=== PATIENT | female | born 1975 | race American Indian/Alaskan Native ===

== ENCOUNTER 2023-07-19 02:22 | Emergency (ER) | payer OTHER ==
[2023-07-19] MEDS ORDERED: Sodium Chloride 0.9% 10 ML Syringe FLUSH PRN (02:27)
[2023-07-19 02:37] LABS: BASOPHILS PERCENT AUTO 0.1 % (0.0-1.0); EOSINOPHILS PERCENT AUTO 0.8 % (1.0-3.0); HEMATOCRIT 38.7 % (37.0-47.0); HEMOGLOBIN 12.5 g/dL (12.0-16.0); LYMPHOCYTES PERCENT AUTO 18.1 % (20.5-50.1); MEAN CORPUSCULAR HEMOGLOBIN 27.8 pg (27.0-34.0); MEAN CORPUSCULAR HGB CONC 32.3 g/dL (33.0-35.0); MONOCYTES PERCENT AUTO 9.2 % (2-8); NEUTROPHILS PERCENT AUTO 71.8 % (42.2-75.2); PLATELET COUNT,PLT 296 10^3/uL (150-450); WHITE BLOOD CELL COUNT,WBC 11.6 10^3/uL (5.0-10.0)
[2023-07-19 02:54] LABS: APPEARANCE,URINE CLEAR (CLEAR); BILIRUBIN,URINE NEGATIVE (NEGATIVE); COLOR,URINE YELLOW (YELLOW); GLUCOSE,URINE NEGATIVE (NEGATIVE); KETONES,URINE NEGATIVE (NEGATIVE); LEUKOCYTE ESTERASE,URINE NEGATIVE (NEGATIVE); NITRITE,URINE NEGATIVE (NEGATIVE); OCCULT BLOOD,URINE LARGE (NEGATIVE); PH,URINE 5.5 (5.0-9.0); PROTEIN,URINE NEGATIVE (NEGATIVE); UROBILINOGEN,URINE 0.2 mg/dL (0.2-1.0)
[2023-07-19 02:56] LABS: A/G RATIO 0.67; ALBUMIN 2.9 g/dL (3.4-5.0); ANION GAP 8.5 mEq/L (7-13); BILIRUBIN TOTAL 0.4 mg/dL (0.2-1.0); BUN/CREATININE RATIO 13.1 (No establ ref range); CALCIUM 8.4 mg/dL (8.5-10.1); CREATININE 0.84 mg/dL (0.55-1.02); EST CRCL DRUG DOSING (CG) 79.65 mL/min; POTASSIUM,K 3.5 mmol/L (3.5-5.1); PROTEIN TOTAL,TP 7.2 g/dL (6.4-8.2)
[2023-07-19 02:57] LABS: AMPHETAMINES,URINE POSITIVE (NEGATIVE); BARBITURATES,URINE NEGATIVE (NEGATIVE); BENZODIAZEPINE,URINE NEGATIVE (NEGATIVE); MDMA (ECSTASY), URINE POSITIVE (NEGATIVE); METHADONE,URINE NEGATIVE (NEGATIVE); METHAMPHETAMINES,URINE POSITIVE (NEGATIVE); OPIATES,URINE NEGATIVE (NEGATIVE); OXYCODONE,URINE NEGATIVE (NEGATIVE); PHENCYCLIDINE,URINE NEGATIVE (NEGATIVE); TCA,URINE NEGATIVE (NEGATIVE)
[2023-07-19] MEDS ORDERED: cefTRIAXone 1 GM Vial IVPUSH ONE (03:02)
[2023-07-19 03:05] LABS: RBC,URINE 40-50 /HPF (0-5); WBC,URINE 0-5 /HPF (0-5/HPF)
[2023-07-19 03:06] LABS: BACTERIA,URINE FEW /HPF (0-FEW/HPF); EPITHELIAL CELLS,URINE MODERATE /HPF (NOT SEEN); HYALINE CASTS,URINE RARE; MUCUS,URINE MANY /LPF (NOT SEEN)
[2023-07-19] MEDS ORDERED: Ketorolac 30 MG/ML SDV IVPUSH ONE (03:24)
== END 2023-07-19 04:30 | disposition home or self-care (01) ==
LOC: DL.ED 02:22
DX: S90.821A Blister (nonthermal), right foot, initial encounter (principal); S69.91XA Unspecified injury of right wrist, hand and finger(s), initial encounter; L03.011 Cellulitis of right finger; Z88.0 Allergy status to penicillin
CPT/HCPCS: 36415; 73130-RT; 73630-RT; 80053; 80305-QW; 81001; 85025; 96374; 96375; 99284; 99284-25; J0696; J1885; J3490

== ENCOUNTER 2023-08-23 20:33 | Emergency (ER) | payer OTHER ==
[2023-08-23] MEDS ORDERED: Dexamethasone 4 MG/ML SDV IM ONE (21:40)
== END 2023-08-23 21:57 | disposition home or self-care (01) ==
LOC: DL.ED 20:33
DX: S39.012A Strain of muscle, fascia and tendon of lower back, initial encounter (principal); Z88.0 Allergy status to penicillin; Z88.2 Allergy status to sulfonamides; Z86.16 Personal history of COVID-19; X50.1XXA Overexertion from prolonged static or awkward postures, initial encounter
CPT/HCPCS: 96372; 99283; J1100